=== PATIENT | male | born 1965 | race Caucasian/White ===

== ENCOUNTER 2017-01-10 23:14 | Emergency (ER) | payer SELFPAY ==
[~2017-01-10] VITALS: Ht 182.9 cm; Wt 70.0 kg
[2017-01-10 23:16] VITALS: BP 131/77; PULSE 105; RESP 16; TEMP 98.5; O2SAT 98
[2017-01-10 23:31] VITALS: BP 121/78; PULSE 89; RESP 18; O2SAT 97
[2017-01-10] MEDS ORDERED: METR250 PO (23:32)
[2017-01-10] MEDS ORDERED: PRED20 PO (23:32)
--- NOTE | 2017-01-10 23:37 | PD ---
HPI Chief Complaint: GI Complaint Time Seen by Provider: 23:37 Travel History International Travel<30 days: No Contact w/Intl Traveler<30days: No Traveled to known affect area: No History of Present Illness HPI 51-year-old male with history of Crohn's disease came to the emergency room with history of diarrhea and abdominal pain that as per him has been going on for past 2 week. Patient is homeless and is here from [place]. He does not have a primary care or a GI specialist. He is not on any medications either. He says he's on his way to [place], [place]. He was initially tachycardic to some extent which eventually subsided. The nurse told me that patient was just in the restroom and had a large foul-smelling diarrhea PFSH Past Medical History Narrative Medical List of his past medical, surgical, social and family history was reviewed from the nursing note. Cirrhosis: Yes Gastrointestinal Disorders: Yes (KROHNS) Tetanus Vaccination: < 5 Years Influenza Vaccination: No Past Surgical History Abdominal Surgery: Yes (PARTIAL COLECTOMY WITH RESECTION) Cholecystectomy: Yes Other Surgery: Yes (PERIANAL FISSURE REPAIR) Social History Alcohol Use: Yes (6-12 BEERS DAILY) Tobacco Use: Yes (1 PPD) Substance Use: Yes (POT) Allergies-Medications (Allergen,Severity, Reaction): Coded Allergies: morphine (Verified Adverse Reaction, Intermediate, 01/11/17) Comments List of his allergies reviewed from the nursing note. Reported Meds & Prescriptions Reported Meds & Active Scripts Active Reported Prilosec (Omeprazole Magnesium) 20 Mg Tab Flagyl (Metronidazole) 250 Mg Tab 250 Mg PO DAILY Narrative Medication List of his home medications reviewed from the nursing note. Review of Systems Except as stated in HPI: all other systems reviewed are Neg Physical Exam Narrative GENERAL: Awake, alert, no obvious distress SKIN: Focused skin assessment warm/dry. HEAD: Atraumatic. Normocephalic. EYES: Pupils equal and round. No scleral icterus. No injection or drainage. ENT: No nasal bleeding or discharge. Mucous membranes pink and moist. NECK: Trachea midline. No JVD. CARDIOVASCULAR: Regular rate and rhythm. No murmur appreciated. RESPIRATORY: No accessory muscle use. Clear to auscultation. Breath sounds equal bilaterally. GASTROINTESTINAL: Abdomen soft, non-tender, nondistended. Hepatic and splenic margins not palpable. MUSCULOSKELETAL: No obvious deformities. No clubbing. No cyanosis. No edema. NEUROLOGICAL: Awake and alert. No obvious cranial nerve deficits. Motor grossly within normal limits. Normal speech. PSYCHIATRIC: Appropriate mood and affect; insight and judgment normal. Data Data Last Documented VS Orders Orders Complete Blood Count With Diff (01/10/17 23:57) Comprehensive Metabolic Panel (01/10/17 23:57) Lipase (01/10/17 23:57) Iv Access Insert/Monitor (01/10/17 23:57) Ecg Monitoring (01/10/17 23:57) Oximetry (01/10/17 23:57) Sodium Chlor 0.9% 1000 Ml Inj (Ns 1000 M (01/10/17 23:57) Sodium Chloride 0.9% Flush (Ns Flush) (01/11/17 00:00) Ketorolac Inj (Toradol Inj) (01/11/17 00:00) Ct Abd/Pel W/O Iv Contrast (01/10/17 ) C Diff Toxin Pcr (01/11/17 00:00) Cryptosporidium (Stool) (01/11/17 00:36) Methylprednisolone So Succ Inj (Solumedr (01/11/17 01:15) Labs Laboratory Tests Test 01/11/17 00:05 White Blood Count 2.9 TH/MM3 Red Blood Count 2.92 MIL/MM3 Hemoglobin 10.2 GM/DL Hematocrit 30.3 % Mean Corpuscular Volume 103.7 FL Mean Corpuscular Hemoglobin 34.8 PG Mean Corpuscular Hemoglobin Concent 33.5 % Red Cell Distribution Width 20.1 % Platelet Count 231 TH/MM3 Mean Platelet Volume 6.0 FL Neutrophils (%) (Auto) 66.2 % Lymphocytes (%) (Auto) 24.2 % Monocytes (%) (Auto) 8.9 % Eosinophils (%) (Auto) 0.3 % Basophils (%) (Auto) 0.4 % Neutrophils # (Auto) 1.9 TH/MM3 Lymphocytes # (Auto) 0.7 TH/MM3 Monocytes # (Auto) 0.3 TH/MM3 Eosinophils # (Auto) 0.0 TH/MM3 Basophils # (Auto) 0.0 TH/MM3 CBC Comment DIFF FINAL Differential Comment Stool C. difficile Toxin (PCR) NEGATIVE Stl C. difficile Toxin Epiderm 027 PRESUMPTIVE NEGATIVE Blood Urea Nitrogen 6 MG/DL Creatinine 0.51 MG/DL Random Glucose 80 MG/DL Total Protein 6.1 GM/DL Albumin 2.6 GM/DL Calcium Level 7.6 MG/DL Alkaline Phosphatase 351 U/L Aspartate Amino Transf (AST/SGOT) 163 U/L Alanine Aminotransferase (ALT/SGPT) 177 U/L Total Bilirubin 0.4 MG/DL Sodium Level 144 MEQ/L Potassium Level 3.5 MEQ/L Chloride Level 111 MEQ/L Carbon Dioxide Level 23.2 MEQ/L Anion Gap 10 MEQ/L Estimat Glomerular Filtration Rate 172 ML/MIN Lipase 230 U/L [facility] Medical Decision Making Medical Screen Exam Complete: Yes Emergency Medical Condition: Yes Medical Record Reviewed: Yes Differential Diagnosis Crohn's disease, colitis, acute gastroenteritis Narrative Course 1:20 AM blood test results of back and patient has leukopenia. 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 He has recently been diagnosed with hepatitis as per him. He is trying to get into a rehabilitation or something of that sort he said since he was mostly mumbling while he was fast asleep. Patient said he has been tested 17 times in past 2 years for HIV and hepatitis. However in my opinion there is a strong possibility of HIV given his leukopenia and the stool could be cryptosporidiosis. Stool test has been ordered for C. difficile and cryptosporidiosis. Patient was given IV Solu-Medrol based on the CAT scan report. I'll discharge him home on prednisone prescription. Procedures EKG Prior to Arrival: No Diagnosis Primary Impression: Crohns disease Qualified Codes: K50.918 - Crohn's disease, unspecified, with other complication Additional Impressions: Diarrhea Qualified Codes: R19.7 - Diarrhea, unspecified Leukopenia Qualified Codes: D72.819 - Decreased white blood cell count, unspecified Hepatitis C Qualified Codes: B18.2 - Chronic viral hepatitis C Med/Other Pt SpecificInfo: Prescription(s) given Disposition: DISCHARGE HOME Condition: Stable Jackson Leal MD Jan 10, 2017 23:37
[2017-01-10] MEDS ORDERED: SODIUM CHLOR 0.9% 1000 ML INJ 1,000 ML IV SCH (23:57)
[2017-01-11] MEDS ORDERED: KETOROLAC TROMETHAMINE 30 MG/ML (IVP) VIAL IVP ONE
[2017-01-11] MEDS ORDERED: SODIUM CHLORIDE 0.9% FLUSH 10 ML FLUSH IV FLUSH PRN
[2017-01-11 00:15] VITALS: O2SAT 98
[2017-01-11 00:16] LABS: AUTOMATED NEUTROPHIL # 1.9 TH/MM3 (1.8-7.7); BASOPHIL % 0.4 % (0.0-2.0); EOSINOPHIL % 0.3 % (0.0-4.0); HEMATOCRIT 30.3 % (39.0-51.0); HEMO FLAGS DIFF FINAL; LYMPH % 24.2 % (9.0-44.0); LYMPHOCYTE # 0.7 TH/MM3 (1.0-4.8); MEAN CELL VOLUME 103.7 FL (80.0-100.0); MEAN CORPUSCULAR HEMOGLOBIN 34.8 PG (27.0-34.0); MEAN CORPUSCULAR HGB CONC 33.5 % (32.0-36.0); MONO % 8.9 % (0.0-8.0); NEUT % 66.2 % (16.0-70.0); PLATELET COUNT 231 TH/MM3 (150-450); RED BLOOD COUNT 2.92 MIL/MM3 (4.50-5.90); RED CELL DISTRIBUTION WIDTH 20.1 % (11.6-17.2); WHITE BLOOD COUNT 2.9 TH/MM3 (4.0-11.0)
[2017-01-11 00:45] LABS: ALT (GPT) 177 U/L (12-78); ANION GAP 10 MEQ/L (5-15); AST (GOT) 163 U/L (15-37); BICARBONATE 23.2 MEQ/L (21.0-32.0); BLOOD UREA NITROGEN 6 MG/DL (7-18); CHLORIDE 111 MEQ/L (98-107); GLOMERULAR FILTRATION RATE 172 ML/MIN (>89); POTASSIUM 3.5 MEQ/L (3.5-5.1); SODIUM (NA) 144 MEQ/L (136-145)
[2017-01-11 00:47] LABS: ALKALINE PHOSPHATASE 351 U/L (45-117); TOTAL BILIRUBIN ADULT 0.4 MG/DL (0.2-1.0)
--- NOTE | 2017-01-11 00:52 | RADRPT ---
EXAM DATE/TIME: 01/11/2017 00:20 [facility] COMPARISON: No previous studies available for comparison. INDICATIONS : Lower abdominal pain and bloody stool with nausea and vomiting. ORAL CONTRAST: No oral contrast ingested. RADIATION DOSE: 9.96 CTDIvol (mGy) MEDICAL HISTORY : Cirrhosis. Crohns disease. SURGICAL HISTORY : Partial colectomy with resection, perianal fissure repair ENCOUNTER: Initial ACUITY: 3 weeks PAIN SCALE: 7/10 LOCATION: Bilateral abdomen TECHNIQUE: Volumetric scanning of the abdomen and pelvis was performed. Using automated exposure control and ad justment of the mA and/or kV according to patient size, radiation dose was kept as low as reasonably achievable to obtain optimal diagnostic quality images. DICOM format image data is available electro nically for review and comparison. FINDINGS: LOWER LUNGS: The visualized lower lungs are clear. LIVER: Mildly enlarged at approximately 19.1 cm craniocaudal. There is fatty infiltration. No focal hepatic lesion. SPLEEN: Normal size without lesion. PANCREAS: Within normal limits. KIDNEYS: Normal in size and shape. There is no mass, stone, or hydronephrosis. ADRENAL GLANDS: Within normal limits. VASCULAR: There is no aortic aneurysm. BOWEL/MESENTERY: Previous right hemicolectomy and presumably distal ileum resection. There is an ileocolic anastomosis in the right upper quadrant. The small bowel at and upstream of the anastomosis is moderately thicke dc/indurated. I don't see any other focal inflammatory changes. No bowel obstruction. No abscess. ABDOMINAL WALL: Within normal limits. RETROPERITONEUM: There is no lymphadenopathy. BLADDER: No wall thickening or mass. REPRODUCTIVE: Within normal limits. INGUINAL: There is no lymphadenopathy or hernia. MUSCULOSKELETAL: No acute bony abnormality demonstrated. CONCLUSION: 1. Moderate severity Crohn's disease involving the small bowel upstream of the ileocolic anastomosis in the right upper quadrant. The length of involvement is estimated at around 20 cm. No abscess, obst ruction or free air. 2. Fatty and mildly enlarged liver. Gianni Gaviria MD on January 11, 2017 at 0:45 Board Certified Radiologist. This report was verified electronically.
[2017-01-11] MEDS ORDERED: methylPREDNISolone SOD SUCC 125 MG/2 ML VIAL IV PUSH ONE (01:15)
[2017-01-11] MEDS ORDERED: PRED20 PO (01:16)
[2017-01-11 01:19] LABS: C. DIFF EPI 027 PRESUMPTIVE NEGATIVE (NEGATIVE)
[2017-01-11] MEDS ORDERED: PRIL20TA2 (17:48)
== END 2017-01-11 01:22 | disposition home or self-care (01) ==
LOC: NEPC 23:14
DX: K50.918 Crohn's disease, unspecified, with other complication (principal); D72.819 Decreased white blood cell count, unspecified; B18.2 Chronic viral hepatitis C; F17.200 Nicotine dependence, unspecified, uncomplicated
CPT/HCPCS: 74176; 80053; 83690; 85025; 87328; 87493; 96361; 96374; 96375; 99285; J1885; J2930; J7030

== ENCOUNTER 2017-01-11 02:55 | Emergency (ER) | payer SELFPAY ==
[~2017-01-11] VITALS: Ht 182.9 cm; Wt 70.0 kg
[~2017-01-11 02:55] MED LIST: METR250 PO; PRED20 PO
[2017-01-11 02:56] VITALS: BP 127/78; PULSE 79; RESP 15; TEMP 98.4; O2SAT 98
--- NOTE | 2017-01-11 03:08 | PD ---
HPI Chief Complaint: Alcohol/Drug Intoxication Time Seen by Provider: 03:06 Travel History International Travel<30 days: No Contact w/Intl Traveler<30days: No Traveled to known affect area: No History of Present Illness HPI I discharged this patient half an hour ago. Patient is homeless and came back because his "felice left him"and he is going through withdrawal. He wanted a "shot of Ativan". He is in no obvious distress. Vital signs are stable. [facility] Past Medical History Narrative Medical List of his past medical, surgical, social and family history is reviewed from the nursing note. Cirrhosis: Yes Gastrointestinal Disorders: Yes (KROHNS) Past Surgical History Abdominal Surgery: Yes (PARTIAL COLECTOMY WITH RESECTION) Cholecystectomy: Yes Other Surgery: Yes (PERIANAL FISSURE REPAIR) Social History Alcohol Use: Yes (6-12 BEERS DAILY) Tobacco Use: Yes (1 PPD) Substance Use: Yes (POT) Allergies-Medications (Allergen,Severity, Reaction): Coded Allergies: morphine (Verified Adverse Reaction, Intermediate, 01/11/17) Comments list of his allergies reviewed from the nursing note. Reported Meds & Prescriptions Reported Meds & Active Scripts Active Reported Prilosec (Omeprazole Magnesium) 20 Mg Tab Flagyl (Metronidazole) 250 Mg Tab 250 Mg PO DAILY Narrative Medication List of his home medications reviewed from the nursing note. Review of Systems Except as stated in HPI: all other systems reviewed are Neg Physical Exam Narrative GENERAL: Awake, alert, no obvious distress SKIN: Focused skin assessment warm/dry. HEAD: Atraumatic. Normocephalic. EYES: Pupils equal and round. No scleral icterus. No injection or drainage. ENT: No nasal bleeding or discharge. Mucous membranes pink and moist. NECK: Trachea midline. No JVD. CARDIOVASCULAR: Regular rate and rhythm. No murmur appreciated. RESPIRATORY: No accessory muscle use. Clear to auscultation. Breath sounds equal bilaterally. GASTROINTESTINAL: Abdomen soft, non-tender, nondistended. Hepatic and splenic margins not palpable. MUSCULOSKELETAL: No obvious deformities. No clubbing. No cyanosis. No edema. NEUROLOGICAL: Awake and alert. No obvious cranial nerve deficits. Motor grossly within normal limits. Normal speech. PSYCHIATRIC: Appropriate mood and affect; insight and judgment normal. Data Data Last Documented VS [facility] Medical Decision Making Medical Screen Exam Complete: Yes Emergency Medical Condition: Yes Medical Record Reviewed: Yes Differential Diagnosis Malingering, homeless Narrative Course 3:05 AM patient will be discharged again. Procedures EKG Prior to Arrival: No Diagnosis Primary Impression: Homelessness Additional Impression: Malingering Disposition: 01 DISCHARGE HOME Condition: Jackson Dunlap MD Jan 11, 2017 03:08
[2017-01-11] MEDS ORDERED: PRIL20TA2 (17:48)
== END 2017-01-11 03:20 | disposition home or self-care (01) ==
LOC: NEPC 02:55
DX: Z59.0 Homelessness (principal); Z76.5 Malingerer [conscious simulation]; K74.60 Unspecified cirrhosis of liver; K50.90 Crohn's disease, unspecified, without complications; F17.200 Nicotine dependence, unspecified, uncomplicated; Z79.899 Other long term (current) drug therapy; Z88.5 Allergy status to narcotic agent
CPT/HCPCS: 99281

== ENCOUNTER 2017-01-11 16:38 | Emergency (ER) | payer SELFPAY ==
[~2017-01-11] VITALS: Ht 182.9 cm; Wt 70.0 kg
[2017-01-11 16:46] VITALS: BP 140/73; PULSE 66; RESP 20; TEMP 98.9; O2SAT 100
[2017-01-11] MEDS ORDERED: PRIL20TA2 (17:48)
--- NOTE | 2017-01-11 18:20 | PD ---
HPI Chief Complaint: GI Complaint Time Seen by Provider: 17:41 Travel History International Travel<30 days: No Contact w/Intl Traveler<30days: No Traveled to known affect area: No History of Present Illness HPI Patient is back to the emergency department complaining of continued abdominal pain from his Crohn's. Patient was seen for this less than 24 hours ago. Patient denies any new symptoms or change in his symptoms. Patient states he is taking medication as prescribed however continues to have abdominal pain and diarrhea. Denies any fevers, chest pain, shortness of breath, back pain, or other complaints. History Past Medical Histgory Tetanus Vaccination: < 5 Years Social History Alcohol Use: Yes (6-12 BEERS DAILY) Tobacco Use: Yes (1 PPD) Allergies-Medications (Allergen,Severity, Reaction): Coded Allergies: morphine (Verified Adverse Reaction, Intermediate, 01/11/17) Reported Meds & Prescriptions Reported Meds & Active Scripts Active Reported Prilosec (Omeprazole Magnesium) 20 Mg Tab Flagyl (Metronidazole) 250 Mg Tab 250 Mg PO DAILY Review of Systems Except as stated in HPI: all other systems reviewed are Neg Physical Exam Narrative GENERAL: Well-developed, well nourished, in no acute distress, and non-ill appearing. SKIN: Focused skin assessment warm and dry. HEAD: Atraumatic. Normocephalic. EYES: Pupils equal and round. EOMI. No scleral icterus. No injection or drainage. ENT: No nasal bleeding or discharge. Mucous membranes pink and moist. NECK: Trachea midline. Supple. No nuclear rigidity. CARDIOVASCULAR: Regular rate and rhythm. No murmur appreciated. RESPIRATORY: No accessory muscle use. No respiratory distress. Clear to auscultation. Breath sounds equal bilaterally. GASTROINTESTINAL: Abdomen soft, nondistended, and no guarding. Hepatic and splenic margins not palpable. Normal bowel sounds 4. No pulsatile mass. Patient reports minimal tenderness to left lower quadrant. MUSCULOSKELETAL: No obvious deformities. No clubbing. No cyanosis. No edema. Full range of motion. NEUROLOGICAL: Awake and alert. No obvious cranial nerve deficits. Motor grossly within normal limits. Normal speech. PSYCHIATRIC: Appropriate mood and affect; insight and judgment normal. Data Data Last Documented VS Vital Signs Date Time Temp Pulse Resp B/P (MAP) Pulse Ox O2 Delivery O2 Flow Rate FiO2 01/11/17 17:44 18 01/11/17 16:46 98.9 66 140/73 (95) 100 Room Air MDM Medical Screen Exam Complete: Yes Emergency Medical Condition: No Narrative Course History and physical exam findings are not consistent with an emergent medical condition. Discussed patient with Dr. Moses, who is in agreement with plan of care and disposition. He was given the option of receiving additional care, but has declined. Therefore the appropriate counseling recommendations were discussed with the patient and he was instructed to follow-up with his primary care physician as soon as possible for reevaluation. Patient was also informed of community resources from which he can obtain additional care. He is agreeable and verbalizes an understanding of the proposed plan. The patient states he will immediately return to the emergency department if his current complaints do not improve, new symptoms arise, or emergent condition develops. Patient ambulated out of the emergency department without difficulty. Primary Impression: Encounter for medical screening examination Disposition: [facility]-ED USE ONLY Condition: Cooper Elena Jan 11, 2017 18:20
== END 2017-01-11 18:09 | disposition left against medical advice (07) ==
LOC: NEPE 16:38
DX: R10.9 Unspecified abdominal pain (principal); R19.7 Diarrhea, unspecified; F17.200 Nicotine dependence, unspecified, uncomplicated; Z88.5 Allergy status to narcotic agent; Z79.899 Other long term (current) drug therapy
CPT/HCPCS: 99281